=== PATIENT | female | born 1945 | race Caucasian/White ===

== ENCOUNTER → 2017-07-30 | Outpatient (CLI) | payer OTHER | LOC: M.ULTRA 10:30 | DX: N63.41 Unspecified lump in right breast, subareolar (principal); R92.2 Inconclusive mammogram ==

== ENCOUNTER → 2018-01-31 | Outpatient (CLI) | payer OTHER | LOC: M.RAD 01-25 11:00 | DX: Z12.31 Encounter for screening mammogram for malignant neoplasm of breast (principal) ==

== ENCOUNTER → 2019-01-31 | Outpatient (CLI) | payer OTHER | LOC: M.RAD 14:04 | DX: Z12.31 Encounter for screening mammogram for malignant neoplasm of breast (principal) ==

== ENCOUNTER → 2020-04-08 | Outpatient (CLI) | payer OTHER | LOC: M.RAD 02-03 11:00 | PROVIDERS: ATTEND Family Medicine | DX: Z12.31 Encounter for screening mammogram for malignant neoplasm of breast (principal) ==